=== PATIENT | male | born 1960 | race Caucasian/White ===

== ENCOUNTER 2016-12-14 08:26 | Day surgery (SDC) | payer OTHER ==
[~2016-12-14] VITALS: Ht 172.7 cm; Wt 72.9 kg
[2016-12-14] MEDS ORDERED: METOPROLOL (09:03)
[2016-12-14] MEDS ORDERED: ASPIRIN (09:03)
[2016-12-14] MEDS ORDERED: ANXIETY MED (09:03)
[2016-12-14 09:04] VITALS: Ht 172.7 cm; Wt 72.9 kg
[2016-12-14 09:53] VITALS: BP 137/88; PULSE 101; RESP 16
[2016-12-14 10:42] VITALS: BP 114/76; RESP 20
--- NOTE | 2016-12-14 11:37 | GILP ---
DATE OF PROCEDURE: 12/14/2016 NAME OF PROCEDURES: 1. Esophagogastroduodenoscopy and biopsy. 2. Colonoscopy and biopsy. SURGEON: Luzma Crenshaw MD PREOPERATIVE DIAGNOSES: 1. Abdominal pain. 2. Change in bowel habit. 3. Screening colonoscopy. POSTOPERATIVE DIAGNOSES: 1. Hiatal hernia. 2. Gastroesophageal reflux disease. 3. Gastritis with erosions. 4. Gastric mucosal biopsies were taken for Helicobacter pylori test. 5. Colonoscopy all the way to the cecum. 6. Small transverse colon polyp was removed using the biopsy forceps. 7. Internal hemorrhoids. INDICATION FOR THE PROCEDURE: Mr. Nico Dalton is a 56-year-old male patient who had upper abdo abdiel pain, not responding to therapy. He also noticed a change in the bowel habit and he needed sc reening colonoscopy. The procedures and possible complications are well explained to the patient. He understood and cons ented to the procedure. DESCRIPTION OF PROCEDURE: Under the influence of anesthesia, the gastroscope was carefully introduc ed into the esophagus and under direct vision, it was advanced to the stomach and through the pyloru s into the duodenal bulb and descending duodenum. FINDINGS: ESOPHAGUS: The patient had hiatal hernia and gastroesophageal reflux disease. STOMACH: He had gastritis with erosions. Gastric mucosal biopsies were taken for H. pylori test. DUODENUM: Normal. The colonoscope was carefully introduced in the rectum and under direct vision, it was advanced all the way to the cecum. FINDINGS: The patient had a small transverse colon polyp and it was removed using the biopsy forcep s. He was noted to have internal hemorrhoids. He tolerated the procedures very well and there was no complication from the procedures. At the end of the procedures, he was awake with stable vital signs and he was discharged home to the care of h is family. IMPRESSION: 1. Hiatal hernia. 2. Gastroesophageal reflux disease. 3. Colonoscopy all the way to the cecum. 4. Small transverse colon polyp was removed using the biopsy forceps. 5. Internal hemorrhoids. PLAN: 1. Omeprazole 40 mg p.o. every morning. 2. Bentyl 10 mg p.o. t.i.d. before meals. 3. Await histopathology reports. 4. Next screening colonoscopy in 10 years. Dictated By: LUZMA CLARK/FIONA Conf#: [id number] [facility] [place]#: [id number]
== END 2016-12-14 13:52 | disposition home or self-care (01) ==
LOC: GIL 08:26
PROVIDERS: ATTEND Internal Medicine Gastroenterology
DX: Z12.11 Encounter for screening for malignant neoplasm of colon (principal); D12.3 Benign neoplasm of transverse colon; K21.9 Gastro-esophageal reflux disease without esophagitis; K29.60 Other gastritis without bleeding; K64.8 Other hemorrhoids; I10 Essential (primary) hypertension; F41.9 Anxiety disorder, unspecified
CPT/HCPCS: 43239; 45380; 87081; 88305; Z7610

== ENCOUNTER 2018-05-13 01:25 | Emergency (ER) | END 2018-05-13 05:38 | disposition home or self-care (01) ==